=== PATIENT | female | born 1945 | race Two or more races ===

== ENCOUNTER 2019-01-05 19:06 | Emergency (ER) | payer MEDICARE, OTHER ==
[~2019-01-05] VITALS: Ht 154.9 cm; Wt 104.3 kg
[2019-01-05 19:08] VITALS: BP 140/88
--- NOTE | 2019-01-05 19:08 | NUR ---
ED Nurse Note: Patient brught in by [facility] unit [id number]. Pt c/o abdoinal pain 8/10 to lower left quadrant. patient is aler x4. requres assistance with ambulation. BP 140/80, t 98.0, hr 78. bed is in lowest position. safety ensured. will continue to monitor.
--- NOTE | 2019-01-05 19:20 | Emergency Room Report ---
History of Present Illness General Chief Complaint: Abdominal Pain Source: Patient, EMS Present Illness HPI She is a 73-year-old female presented after increased abdominal pain for approximately 2 days. Patient reports having worsening pain with movement. She denies any fever. She reports having worsening pain with left lower abdomen. She reports having prior but denies other abdominal surgeries. She denies similar symptoms in the past. She states that she had previously been diagnosed with diabetes but is not currently taking medications. Allergies: Coded Allergies: No Known Allergies (Unverified , 01/05/19) Patient History Past Medical History: see triage record Reviewed Nursing Documentation: PMH: Agreed; PSxH: Agreed Nursing Documentation-PMH Past Medical History: No History, Except For Hx Hypertension: Yes - Back surgery Review of Systems All Other Systems: negative except mentioned in HPI Physical Exam Vital Signs Date Time Temp Pulse Resp B/P (MAP) Pulse Ox O2 Delivery O2 Flow Rate FiO2 01/05/19 19:05 97.5 75 15 148/80 (102) 94 Room Air General Appearance: alert, GCS 15, obese, Chronically Ill ENT: hearing grossly normal Neck: normal inspection, supple Respiratory: chest non-tender, lungs clear, normal breath sounds Cardiovascular #1: normal inspection Gastrointestinal: normal inspection, non tender, soft, other - left lower abdominal tenderness Musculoskeletal: normal inspection, back normal Neurologic: normal inspection, alert, oriented x3, responsive, investment banking analyst III-XII nml as tested Psychiatric: normal inspection, judgement/insight normal Lymphatic: normal inspection Medical Decision Making Diagnostic Impression: Primary Impression: Nonspecific abdominal pain ER Course Patient presented for abdominal pain. Differential diagnoses included ischemic bowel, appendicitis, perforated viscus, abdominal aortic aneurysm, inferior myocardial infarction, viral gastroenteritis among others. Because of complexity of patient's case laboratory testing and imaging studies were ordered.Patient's laboratory testings were unremarkable.CT imaging showed no acute findings consistent with the patient's left-sided abdominal pain. Patient was noted to have some chronic bladder outlet obstruction and cardiomegaly. Urinalysis did not show any definite infection. Patient will be treated with medications for nerve pain. Patient was advised to follow-up with her primary care physician for recheck. Patient was discharged home with her son.She is advised to return if worse. Labs Test 01/05/19 19:20 01/05/19 19:26 White Blood Count 8.7 K/UL (4.8-10.8) Red Blood Count 4.50 M/UL (4.20-5.40) Hemoglobin 13.5 G/DL (12.0-16.0) Hematocrit 40.9 % (37.0-47.0) Mean Corpuscular Volume 91 FL (80-99) Mean Corpuscular Hemoglobin 30.1 PG (27.0-31.0) Mean Corpuscular Hemoglobin Concent 33.1 G/DL (32.0-36.0) Red Cell Distribution Width 12.6 % (11.6-14.8) Platelet Count 210 K/UL (150-450) Mean Platelet Volume 8.5 FL (6.5-10.1) Neutrophils (%) (Auto) 67.6 % (45.0-75.0) Lymphocytes (%) (Auto) 23.8 % (20.0-45.0) Monocytes (%) (Auto) 5.7 % (1.0-10.0) Eosinophils (%) (Auto) 1.5 % (0.0-3.0) Basophils (%) (Auto) 1.4 % (0.0-2.0) Prothrombin Time 9.7 SEC (9.30-11.50) Prothromb Time International Ratio 0.9 (0.9-1.1) Activated Partial Thromboplast Time 27 SEC (23-33) Sodium Level 140 MMOL/L (136-145) Potassium Level 3.1 MMOL/L (3.5-5.1) Chloride Level 106 MMOL/L (98-107) Carbon Dioxide Level 20 MMOL/L (21-32) Anion Gap 14 mmol/L (5-15) Blood Urea Nitrogen 16 mg/dL (7-18) Creatinine 0.8 MG/DL (0.55-1.30) Estimat Glomerular Filtration Rate mL/min (>60) Glucose Level 100 MG/DL (74-106) Calcium Level 9.4 MG/DL (8.5-10.1) Total Bilirubin 0.4 MG/DL (0.2-1.0) Aspartate Amino Transf (AST/SGOT) 13 U/L (15-37) Alanine Aminotransferase (ALT/SGPT) 14 U/L (12-78) Alkaline Phosphatase 101 U/L (46-116) Troponin I 0.000 ng/mL (0.000-0.056) Total Protein 7.4 G/DL (6.4-8.2) Albumin 3.5 G/DL (3.4-5.0) Globulin 3.9 g/dL Albumin/Globulin Ratio 0.9 (1.0-2.7) Lipase 121 U/L (73-393) Urine Color Mary Urine Appearance Clear Urine pH 5 (4.5-8.0) Urine Specific [place] 1.010 (1.005-1.035) Urine Protein 1+ (NEGATIVE) Urine Glucose (UA) Negative (NEGATIVE) Urine Ketones Negative (NEGATIVE) Urine Blood 1+ (NEGATIVE) Urine Nitrite Negative (NEGATIVE) Urine Bilirubin 1+ (NEGATIVE) Urine Ictotest Negative (NEGATIVE) Urine Urobilinogen Normal MG/DL (0.0-1.0) Urine Leukocyte Esterase 1+ (NEGATIVE) Urine RBC 0-2 /HPF (0 - 2) Urine WBC 5-10 /HPF (0 - 2) Urine Squamous Epithelial Cells Few /LPF (NONE/OCC) Urine Amorphous Sediment Moderate /LPF (NONE) Urine Bacteria Few /HPF (NONE) Urine Mucus Few /LPF (NONE/OCC) Last Vital Signs Date Time Temp Pulse Resp B/P (MAP) Pulse Ox O2 Delivery O2 Flow Rate FiO2 01/05/19 19:05 97.5 75 15 148/80 (102) 94 Room Air Status: improved Disposition: HOME, SELF-CARE Condition: Stable Scripts Oxcarbazepine (OXCARBAZEPINE) 300 Mg Tablet 300 MG PO DAILY, #30 TAB Prov: Francisco Dailey MD 01/05/19 Francisco Dailey MD Jan 05, 2019 19:20
[2019-01-05] MEDS ORDERED: CHLORTHALIDONE25 MG ORAL (19:21)
[2019-01-05] MEDS ORDERED: BUPROPION HCL100 MG ORAL (19:21)
[2019-01-05] MEDS ORDERED: GABAPENTIN300 MG ORAL (19:21)
[2019-01-05] MEDS ORDERED: NORMODYNE300 MG ORAL (19:21)
[2019-01-05] MEDS ORDERED: VIT D3 PO (19:21)
[2019-01-05] MEDS ORDERED: FLUOXETINE HCL40 MG ORAL (19:21)
[2019-01-05] MEDS ORDERED: ATORVASTATIN CA40 MG ORAL (19:21)
[2019-01-05] MEDS ORDERED: LOSARTAN POTASS25 MG ORAL (19:21)
[2019-01-05] MEDS ORDERED: Dicyclomine HCl 10mg/5ml oral soln ORAL ONE (19:30)
[2019-01-05] MEDS ORDERED: Mylanta II UD 30ml ORAL ONE (19:30)
[2019-01-05] MEDS ORDERED: Morphine Sulfate 2mg/ml Inj(IV/IM USE ONLY) IVP ONE (19:30)
[2019-01-05] MEDS ORDERED: Isovue-300 100ml vial INJ PRN (19:30)
[2019-01-05] MEDS ORDERED: Lidocaine 2% Visc 15ml soln ORAL ONE (19:30)
[2019-01-05 19:55] LABS: BASOPHILS % (AUTO) 1.4 % (0.0-2.0); EOSINOPHILS % (AUTO) 1.5 % (0.0-3.0); HEMATOCRIT 40.9 % (37.0-47.0); HEMOGLOBIN 13.5 G/DL (12.0-16.0); LYMPHOCYTES % (AUTO) 23.8 % (20.0-45.0); MEAN CORPUSCULAR VOLUME 91 FL (80-99); MONOCYTES % (AUTO) 5.7 % (1.0-10.0); NEUTROPHILS % (AUTO) 67.6 % (45.0-75.0); PLATELET COUNT 210 K/UL (150-450); RED CELL DISTRIBUTION WIDTH 12.6 % (11.6-14.8); WHITE BLOOD COUNT 8.7 K/UL (4.8-10.8)
[2019-01-05 19:58] LABS: APPEARANCE,URINE CLEAR; BILIRUBIN, URINE 1+ (NEGATIVE); COLOR,URINE AMBER; GLUCOSE, URINE (UA) NEGATIVE (NEGATIVE); KETONES,URINE NEGATIVE (NEGATIVE); LEUKOCYTE ESTERASE ,URINE 1+ (NEGATIVE); NITRITE,URINE NEGATIVE (NEGATIVE); PH,URINE 5 (4.5-8.0); PROTEIN,URINE 1+ (NEGATIVE); UROBILINOGEN,URINE NORMAL MG/DL (0.0-1.0)
[2019-01-05 20:03] LABS: INR 0.9 (0.9-1.1)
[2019-01-05 20:05] LABS: ANION GAP 14 mmol/L (5-15); BLOOD UREA NITROGEN 16 mg/dL (7-18); CALCIUM 9.4 MG/DL (8.5-10.1); CARBON DIOXIDE 20 MMOL/L (21-32); CHLORIDE 106 MMOL/L (98-107); CREATININE 0.8 MG/DL (0.55-1.30); POTASSIUM 3.1 MMOL/L (3.5-5.1); SODIUM 140 MMOL/L (136-145)
[2019-01-05 20:10] LABS: ALANINE AMINOTRANSFERASE 14 U/L (12-78); ALBUMIN 3.5 G/DL (3.4-5.0); ALBUMIN/GLOBULIN RATIO 0.9 (1.0-2.7); ALKALINE PHOSPHATASE 101 U/L (46-116); ASPARTATE AMINO TRANSFERASE 13 U/L (15-37); BILIRUBIN,TOTAL 0.4 MG/DL (0.2-1.0)
--- NOTE | 2019-01-05 21:02 | Diagnostic Imaging Report ---
Clinical Indication: Increased abdominal pain for approximately 2 days Technique: No oral contrast utilized, per emergency room physician request IV administration nonionic contrast. Venous phase spiral acquisition obtained through the abdomen and pelvis. Multiplanar reconstructions were generated. Total dose length product 1032.97 mGycm. CTDIvol(s) 19.28 mGy. Dose reduction achieved using automated exposure control Comparison: none Findings: The appendix is normal. No evidence of diverticulosis or diverticulitis. No small bowel distention. No free or loculated intraperitoneal gas or fluid is evident. The distal esophagus, stomach, duodenum are unremarkable. The gallbladder is distended. There are no stones, wall thickening, or pericholecystic fluid demonstrated. No biliary ductal dilatation. The liver, pancreas, spleen, right adrenal are unremarkable. The left adrenal demonstrates an 18 mm nodule in the lower pole and a second central 14 mm nodule. The right kidney demonstrates a 1.5 cm cyst in the interpolar region. The left kidney is unremarkable. No retroperitoneal or mesenteric mass or adenopathy. No pelvic mass or adenopathy. A calcification is seen in the upper uterine fundus. Small focal area of scarring is seen at the right posterior lung base. Dependent atelectatic changes are demonstrated bilaterally. The bones demonstrate evidence of prior spinal fusion surgery at L4-5. There are degenerative spondylosis changes. Impression: No acute abnormality 18 mm and 14 mm left adrenal nodules. Consider further evaluation with adrenal protocol MRI or CT Incidental findings of degenerative spondylosis, evidence of prior lumbar spine fusion surgery, uterine fundal calcification, basilar pulmonary parenchymal scarring and atelectasis, right renal cyst. Agrees stat rad The CT scanner at [facility] is accredited by the [employer] and the scans are performed using protocols designed to limit radiation exposure to as low as reasonably achievable to attain images of sufficient resolution adequate for diagnostic evaluation.
[2019-01-05] MEDS ORDERED: OXCARBAZEPINE300 MG PO (22:33)
[2019-01-05 22:50] VITALS: BP 138/78
--- NOTE | 2019-01-05 22:50 | NUR ---
ER DISCHARGE NOTE: Patient is cleared to be discharged per ERMD, pt is aox4, on room air, with stable vital signs. pt was given dc and prescription instructions, pt was able to verbalize understanding, pt id band and iv site removed without complications. patient was discharged accompanied by her son via WC via taxi
== END 2019-01-05 22:50 | disposition home or self-care (01) ==
LOC: EDBD 19:06 → EMR 19:41
DX: R10.32 Left lower quadrant pain (principal); I10 Essential (primary) hypertension
CPT/HCPCS: 36415; 74177; 80053; 81003; 83690; 84484; 85025; 85610; 85730; 93005; 96372; 96374; 99284; J2270; J2405; Q9967; J8499